=== PATIENT | male | born 1970 | race Two or more races ===

== ENCOUNTER 2022-05-06 04:16 | Day surgery (SDC) | payer OTHER ==
[2022-05-05 07:28] VITALS: BMI 28.6
[2022-05-06 13:32] VITALS: TEMP 97.5
[2022-05-06 13:54] VITALS: BP 111/62
[2022-05-06 13:55] VITALS: PULSE 54; RESP 19
== END 2022-05-06 14:08 | disposition home or self-care (01) ==
LOC: JASU-ENDO 04:16
PROVIDERS: ATTEND Internal Medicine Gastroenterology
PROC: 0DBM8ZX Excision of Descending Colon, Via Natural or Artificial Opening Endoscopic, Diagnostic (ICD-10-PCS; principal; 2022-05-06 11:00)
DX: Z12.11 Encounter for screening for malignant neoplasm of colon (principal); D12.4 Benign neoplasm of descending colon
CPT/HCPCS: 88305-TC